=== PATIENT | male | born 1995 | race Caucasian/White ===

== ENCOUNTER 2019-01-25 21:36 | Emergency (ER) | payer MEDICAID, OTHER ==
[~2019-01-25] VITALS: Ht 165.1 cm; Wt 74.8 kg
[2019-01-25 21:46] VITALS: Ht 165.1 cm; Wt 74.8 kg
[2019-01-25] MEDS ORDERED: BELLADONNA/PHENOBARBITAL TAB PO STA (22:04)
[2019-01-25] MEDS ORDERED: LIDOCAINE/MYLANTA 40 ML BTL PO STA (22:04)
[2019-01-26] MEDS ORDERED: ACET500C5 PO (00:33)
[2019-01-26] MEDS ORDERED: FAMO-96 PO (00:33)
[2019-01-26 00:47] VITALS: BP 123/83; PULSE 61; RESP 18
--- NOTE | 2019-01-26 01:49 | ERD ---
ER Documentation Chief Complaint Chief Complaint PT reports epigastric pain x 3 days w/o relief HPI 23-year-old male presenting with epigastric pain x3 days. Patient states is been going on consistently and has had a few episodes of vomiting. No fevers. Took Tums and aspirin. Has burning with eating. Patient also took Tums. D enies medical problems. NKDA. 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 Social history denies. Drug use smokes marijuana occasionally ROS All systems reviewed and are negative except as per history of present illness. Medications Home Meds Active Scripts Acetaminophen* (Tylophen*) 500 Mg Capsule, 1 CAP PO Q6H PRN for PAIN AND OR ELEVATED TEMP, #20 CAP Prov:JEFFREY DANIELS PA-C 01/26/19 Famotidine* (Pepcid*) 20 Mg Tablet, 20 MG PO BID for 4 Days, #30 TAB Prov:JEFFREY DANIELS PA-C 01/26/19 Allergies Allergies: Coded Allergies: No Known Allergy (Unverified , 01/25/19) PMhx/Soc History of Surgery: Yes (Aortic Stenosis Repair) Anesthesia Reaction: No Hx Neurological Disorder: No Hx Respiratory Disorders: No Hx Cardiac Disorders: No Hx Psychiatric Problems: No Hx Miscellaneous Medical Probl: No Hx Alcohol Use: No Hx Substance Use: Yes (Marijuana) Hx Tobacco Use: No Smoking Status: Never smoker FmHx Family History: No diabetes, No coronary disease, No other Physical Exam Vitals Vital Signs Date Temp Pulse Resp B/P (MAP) Pulse Ox O2 O2 Flow FiO2 Time Delivery Rate 01/26/19 97.7 61 18 123/83 97 00:47 (96) 01/25/19 97.8 76 16 125/76 99 21:46 (92) Physical Exam GENERAL: The patient is well-appearing, well-nourished, in no acute distress HEENT: Atraumatic. Conjunctivae are pink. Pupils equal, round, and reactive to light. There is no scleral icterus. Tympanic membranes clear bilaterally. Oropharynx clear. NECK: C-spine is soft and supple. There is no meningismus. There is no c ervical lymphadenopathy. CHEST: Clear to auscultation bilaterally. There are no rales, wheezes or rhonchi. HEART: Regular rate and rhythm. No murmurs, clicks, rubs or gallops. ABDOMEN:Soft, nontender and nondistended. Good bowel sounds. No rebound or guarding. No gross peritonitis. No gross organomegaly or masses. Result Diagram: 01/25/19222101/25/192221 Results 24 hrs Laboratory Tests Test 01/25/19 22:22 White Blood Count 9.4 10^3/ul Red Blood Count 5.59 10^6/ul Hemoglobin 16.2 g/dl Hematocrit 47.9 % Mean Corpuscular Volume 85.7 fl Mean Corpuscular Hemoglobin 29.0 pg Mean Corpuscular Hemoglobin Concent 33.8 g/dl Red Cell Distribution Width 11.6 % Platelet Count 270 10^3/UL Mean Platelet Volume 10.6 fl Immature Granulocytes % 0.200 % Neutrophils % 60.8 % Lymphocytes % 26.1 % Monocytes % 10.5 % Eosinophils % 2.0 % Basophils % 0.4 % Nucleated Red Blood Cells % 0.0 /100WBC Immature Granulocytes # 0.020 10^3/ul Neutrophils # 5.7 10^3/ul Lymphocytes # 2.5 10^3/ul Monocytes # 1.0 10^3/ul Eosinophils # 0.2 10^3/ul Basophils # 0.0 10^3/ul Nucleated Red Blood Cells # 0.0 10^3/ul Urine Color YELLOW Urine Clarity CLEAR Urine pH 6.0 Urine Specific [place] 1.024 Urine Ketones NEGATIVE mg/dL Urine Nitrite NEGATIVE mg/dL Urine Bilirubin NEGATIVE mg/dL Urine Urobilinogen NEGATIVE mg/dL Urine Leukocyte Esterase NEGATIVE Victor M/ul Urine Hemoglobin NEGATIVE mg/dL Urine Glucose NEGATIVE mg/dL Urine Total Protein NEGATIVE mg/dl Sodium Level 144 mmol/L Potassium Level 4.3 mmol/L Chloride Level 104 mmol/L Carbon Dioxide Level 30 mmol/L Anion Gap 10 Blood Urea Nitrogen 18 mg/dl Creatinine 1.11 mg/dl Est Glomerular Filtrat Rate mL/min > 60 mL/min Glucose Level 101 mg/dl Calcium Level 9.5 mg/dl Total Bilirubin 0.5 mg/dl Direct Bilirubin 0.00 mg/dl Indirect Bilirubin 0.5 mg/dl Aspartate Amino Transf (AST/SGOT) 18 IU/L Alanine Aminotransferase (ALT/SGPT) 25 IU/L Alkaline Phosphatase 70 IU/L Troponin I < 0.012 ng/ml Total Protein 7.6 g/dl Albumin 4.6 g/dl Globulin 3.00 g/dl Albumin/Globulin Ratio 1.53 Lipase 92 U/L Current Medications Medications Dose Sig/Cassandra Start Time Status Last (Trade) Ordered Route PRN Stop Time Admin Dose Reason Admin 40 ml ONCE STAT 01/25/19 DC 01/25/19 Miscellaneous PO 22:04 01/25/19 22:23 Medication 22:05 (Gi Cocktail (2)) Belladonna/ 2 tab ONCE STAT 01/25/19 DC 01/25/19 Phenobarbital PO 22:04 01/25/19 22:23 () 22:05 Procedures/MDM DIAGNOSTIC IMAGING REPORT Patient: ADRIAN PICKENS : 1995 Age: 23 Sex: M MR #: [id number] DOS: 01/25/192203 Ordering MD: ROXANNE DANIELS PA-C Location: [facility] Room/Bed: PROCEDURE: Portable chest x-ray. CLINICAL INDICATION: Abdominal pain. TECHNIQUE: Portable AP view of the chest. COMPARISON: None. FINDINGS: Surgical clips project over the left hilum. No pulmonary edema or conolidation is identified. The cardiac silhouette is magnified. No pleural effusion is seen. There is no pneumothorax. There is no pneumoperitoneum. IMPRESSION: No evidence of acute cardiopulmonary disease. Evidence of prior left chest surgery. No pneumoperitoneum. EKG: Rate/Rhythm: 69 bpm. Normal Sinus Rhythm QRS, ST, T-waves: No changes consistent w/ acute ischemia Impression: No evidence of ischemia or arrhythmia DM: 23-year-old male presenting with epigastric pain. I have low suspicion for cardiac emergency. I have low suspicion for choledocholithiasis, cholecystitis, cholangitis. Patient is discharged with supportive medications. He likely has GERD symptoms. Patient is told symptoms change or worsen to return immediately to the ER. All questions answered at discharge Departure Diagnosis: Primary Impression: Epigastric pain Condition: Stable Patient Instructions: Gerd (Adult), Epigastric Pain (Uncertain Cause) Referrals: COMM[facility]ITY [facility]IN[facility] YOU HAVE RECEIVED A MEDICAL SCREENING EXAM AND THE RESULTS INDICATE THAT YOU DO NOT HAVE A CONDITION THAT REQUIRES URGENT TREATMENT IN THE EMERGENCY DEPARTMENT. FURTHER EVALUATION AND TREATMENT OF YOUR CONDITION CAN WAIT UNTIL YOU ARE SEEN IN YOUR DOCTORS OFFICE WITHIN THE NEXT 1-2 DAYS. IT IS YOUR RESPONSIBILITY TO MAKE AN APPOINTMENT FOR FOLOW-UP CARE. IF YOU HAVE A PRIMARY DOCTOR --you should call your primary doctor and schedule an appointment IF YOU DO NOT HAVE A PRIMARY DOCTOR YOU CAN CALL OUR PHYSICIAN REFERRAL HOTLINE AT IF YOU CAN NOT AFFORD TO SEE A PHYSICIAN YOU CAN CHOSE FROM THE FOLLOWING [facility] [address] [facility] [address] [facility] [address] [facility] [address] [facility] [address] [facility]. [address] Additional Instructions: FOLLOW UP WITH YOUR PRIMARY CARE PHYSICIAN TOMORROW.Return to this facility if you are not improving as expected. JEFFREY DANIELS PA-C Jan 26, 2019 01:49
== END 2019-01-26 00:47 | disposition home or self-care (01) ==
LOC: FTE 21:36
DX: R10.13 Epigastric pain (principal)
CPT/HCPCS: 36415; 71045; 80053; 81003; 83690; 84484; 85025; 93005; Z7502; Z7610